=== PATIENT | male | born 1980 | race Caucasian/White ===

== ENCOUNTER → 2023-05-28 | Outpatient (CLI) | payer BC, SELFPAY ==
[2023-05-28 18:14] LABS: Absolute Lymphocyte Count 2.11 X10^3/uL (0.83-4.51); Absolute Neutrophil Count 3.6 X10^3/uL (2.0-7.7); Basophil# 0.05 X10^3/uL; Basophil% 0.8 % (0-1); Eosinophil# 0.15 X10^3/uL; Eosinophils% 2.3 % (0-5); Hematocrit 47.8 % (40-54); Lymphocyte # 2.11 X10^3/ul (0.83-4.51); Lymphocyte % 32.9 % (19-41); Mean Corp Hgb Conc 33.5 g/dL (32-36); Mean Corpuscular Volume 86.8 fL (80-94); Mean Platelet Vol. 10.7 fl (6.2-12.0); Monocyte# 0.53 X10^3/uL; Monocyte% 8.3 % (0-10); NRBC Flagged by Analyzer 0 % (0-5); Neutrophil # 3.57 X10^3/uL (2.7-7.7); Neutrophil % 55.5 % (47-70); Platelet Count 330 K/mm3 (150-450); RBC Distribution Width CV 11.7 % (11.6-14.6); RBC Distribution Width SD 37.3 fl (35.1-43.9); Red Blood Count 5.51 M/mm3 (4.6-6.2); White Blood Count 6.4 K/mm3 (4.4-11.0)
[2023-05-28 18:35] LABS: Vitamin D,25 Hydroxy 24.4 ng/mL
[2023-05-28 18:41] LABS: ALB/GLOB Ratio 1.1 RATIO (0.9-2.4); AST(SGOT) 35 U/L (15-37); Alanine Aminotransfer ALT/SGPT 38 U/L (16-61); Albumin, Serum 3.9 g/dL (3.2-5.0); Alkaline Phosphatase 65 U/L (45-117); Anion Gap 7 (5-15); BUN 11 mg/dL (7-18); BUN/Creat Ratio 8.9 RATIO (10-20); Calcium,Total 9.1 mg/dL (8.5-10.1); Chloride 106 mmol/L (98-107); Creatinine, Serum 1.23 mg/dL (0.70-1.30); EST Glomerular Filtration Rate 69 mL/min (>60); Est Glom Filt Rate - Afr Amer 83 mL/min (>60); Globulin 3.7 g/dL (2.2-4.2); Glucose 113 mg/dL (74-106); Potassium 3.7 mmol/L (3.5-5.1); Protein, Total 7.6 g/dL (6.4-8.2); Sodium Level 139 mmol/L (136-145); Thyroid Stim Hormone (TSH) 1.02 uIU/mL (0.358-3.74)
[2023-05-28 21:41] LABS: Hemoglobin A1c 5.4 % (3.8-5.6)
--- OUTSIDE RECORDS SUMMARY | 2023-05-29 02:14 | XMS RPT_ITS | CCD ---
Author Name Unknown Address [address] [place] [address] Organization [facility] Care Team Providers Care Mortgage Processing Clerk Name Role Phone Alejandra King MD Primary Care Provider ALEJANDRA KING Primary Care Unavailable BENTON PHILLIPS Attending Unavailable ALEJANDRA KING Referring Unavailable BENTON PHILLIPS Attending Unavailable ALEJANDRA KING Primary Care Unavailable GREGG GREWAL Attending Unavailable ALEJANDRA KING Primary Care Unavailable GREGG GREWAL Attending Unavailable ALEJANDRA KING Primary Care Unavailable GREGG GREWAL Attending Unavailable ALEJANDRA KING Primary Care Unavailable ALEJANDRA KING Primary Care Unavailable JOSE LUIS SALVADOR Attending Unavailable Medications Current Medications Medication Drug Class(es) Dates Sig (Normalized) Sig (Original) azelastine hydrochloride 0.137 mg/actuat metered dose nasal spray (5 sources) Histamine-1 Receptor Antagonist Start: 04-26-2022 End: 04-26-2023 take 2 spray(s) nasal route twice daily azelastine (Astelin) 0.1 % nasal spray Administer 2 sprays into each nostril 2 times daily. Use in each nostril as directed 30 mL 11 04/26/2022 04/26/2023 Active ipratropium bromide 0.042 mg/actuat metered dose nasal spray (5 sources) Anticholinergic Start: 06-11-2022 End: 07-02-2022 take 2 spray(s) nasal route three times daily ipratropium (Atrovent) 0.06 % nasal spray Administer 2 sprays into each nostril 3 times daily for 21 days. 15 mL 0 06/11/2022 Active magnesium oxide 400 mg oral capsule (3 sources) take 1 capsule by mouth once daily magnesium oxide 400 MG capsule Take 400 mg by mouth daily. 0 Active meloxicam 5 mg oral capsule (5 sources) Nonsteroidal Anti-inflammatory Drug take 1 capsule by mouth in the morning Meloxicam 5 MG capsule Take 5 mg by mouth in the morning. 0 Active Completed/Discontinued Medications Medication Drug Class(es) Dates Sig (Normalized) Sig (Original) methylPREDNISolone 4 mg oral tablet (1 source) Corticosteroid Start: 3 End: 3 methylPREDNISolone (Medrol Dospak) 4 MG tablets Indications: Chronic migraine without aura with status migrainosus, not intractable Take as directed 1 each 0 08/27/2022 11/27/2022 Discontinued (Med list cleanup) nortriptyline 10 mg oral capsule (3 sources) Tricyclic Antidepressant Start: 3 End: 3 take 2 capsules by mouth once daily nortriptyline (Pamelor) 10 MG capsule Indications: Chronic migraine without aura with status migrainosus, not intractable Take 2 capsules (20 mg) by mouth Nightly. 60 capsule 2 11/27/2022 02/26/2023 Discontinued (Side effects) riboflavin 100 mg oral tablet (1 source) End: 3 Riboflavin 100 MG capsule Take by mouth. 0 11/27/2022 Discontinued (Therapy completed) rizatriptan 5 mg disintegrating oral tablet (2 sources) Serotonin-1b and Serotonin-1d Receptor Agonist Start: 3 End: 3 rizatriptan STRATEGY INTERN (Maxalt-STRATEGY INTERN) 5 MG disintegrating tablet Take 1 tablet (5 mg) by mouth Once as needed for migraine. May repeat in 2 hours if unresolved. Do not exceed 30 mg in 24 hours. 9 tablet 0 06/22/2022 11/27/2022 Discontinued (Ineffective) SUMAtriptan 100 mg oral tablet (3 sources) Serotonin-1b and Serotonin-1d Receptor Agonist Start: 3 End: 3 take 1 tablet by mouth every two hours, then take 2 tablets by mouth every twenty-four hours SUMAtriptan (Imitrex) 100 MG tablet Indications: Chronic migraine without aura with status migrainosus, not intractable Take one tablet by ORAL route at onset of headache. If headache continues may repeat dose 2 hours later with max dose of 2 tablets in 24 hours. 9 tablet 2 11/27/2022 02/26/2023 Discontinued (Ineffective) Problems Active Problems Problem Classification Problem Date Documented Da te Episodic/Chronic Headache; including migraine (13 sources) Refractory migraine with aura; Translations: [Persistent migraine aura without cerebral infarction, intractable, without status migrainosus] Onset: 06-11-2022 Chronic Headache; including migraine (2 sources) Headache; including migraine; Translations: [Headache, unspecified] Onset: 04-26-2022 Other upper respiratory disease (1 source) Nasal obstruction; Translations: [Other specified disorders of nose and nasal sinuses] Episodic Other upper respiratory infections (2 sources) Other chronic sinusitis; Translations: [Other chronic sinusitis] Onset: 04-26-2022 Chronic Past or Other Problems Problem Classification Problem Date Documented Da te Episodic/Chronic Other upper respiratory disease (2 sources) Deviated nasal septum; Translations: [Deviated nasal septum] Onset: 06-11-2022 Episodic Other upper respiratory disease (2 sources) Other specified disorders of nose and nasal sinuses; Translations: [Other specified disorders of nose and nasal sinuses] Onset: 06-11-2022 Episodic Other upper respiratory disease (1 source) Deviated nasal septum; Translations: [Deviated nasal septum] Onset: 06-11-2022 Episodic Results Test Name Value Interpretation Reference Range Facil ity Vital Signs Date Time Vital Sign Value Performing Clinician Faci [facility] 02-26-2023 08:54-0500 Body height 182.9 cm Gregg Xuzhou [employer] Work Phone: [facility] 02-26-2023 08:54-0500 Body mass index (BMI) [Ratio] 28.89 kg/m2 Gregg Xuzhou [employer] Work Phone: [facility] 02-26-2023 08:54-0500 Body weight 96.62 kg Gregg Xuzhou [employer] Work Phone: [facility] 02-26-2023 08:54-0500 Diastolic blood pressure 78 mm[Hg] Gregg Grewal [employer] Work Phone: [facility] 02-26-2023 08:54-0500 Heart rate 78 /min Gregg [employer] Work Phone: [facility] 02-26-2023 08:54-0500 Systolic blood pressure 129 mm[Hg] Gregg Gayer PA-C Work Phone: [facility] 11-27-2022 08:51-0400 Body height 182.9 cm Gregg Gayer PA-C Work Phone: [facility] 11-27-2022 08:51-0400 Body mass index (BMI) [Ratio] 27.8 kg/m2 Gregg Gayer PA-C Work Phone: [facility] 11-27-2022 08:51-0400 Body weight 92.99 kg Gregg Gayer PA-C Work Phone: [facility] 11-27-2022 08:51-0400 Diastolic blood pressure 81 mm[Hg] Gregg Gayer PA-C Work Phone: [facility] 11-27-2022 08:51-0400 Heart rate 78 /min Gregg Gayer PA-C Work Phone: [facility] 11-27-2022 08:51-0400 Systolic blood pressure 144 mm[Hg] Gregg Gayer PA-C Work Phone: [facility] 06-22-2022 08:27-0400 Body height 182.9 cm Jose Luis Salvador MD Work Phone: [facility] 06-22-2022 08:27-0400 Body mass index (BMI) [Ratio] 27.12 kg/m2 Jose Luis Salvador MD Work Phone: [facility] 06-22-2022 08:27-0400 Body temperature 97.59 [degF] Jose Luis Salvador MD Work Phone: [facility] 06-22-2022 08:27-0400 Body weight 90.72 kg Jose Luis Salvador MD Work Phone: [facility] 06-22-2022 08:27-0400 Diastolic blood pressure 78 mm[Hg] Jose Luis Salvador MD Work Phone: [facility] Encounters Encounter Date Encounter Type Care Provider Facility Start: 02-26-2023 End: 02-26-2023 ambulatory GREGG GREWAL [facility] Start: 02-26-2023 End: 02-26-2023 Office outpatient visit 15 minutes Gregg Grewal PA-C Work Phone: [facility] Plan of Treatment Date Care Activity Detail Author Start: 2041 RSV Immunization age d 60 or older (1 - 1-dose 60+ series) RSV Immunization aged 60 or older (1 - 1-dose 60+ series) [facility] Start: 12-29-2031 Zoster Vaccines (1 of 2) Zoster Vacc libby (1 of 2) [facility] Start: 03-18-2030 DTaP/Tdap/Td Vaccine s (2 - Td or Tdap) DTaP/Tdap/Td Vaccines (2 - Td or Tdap) [facility] Start: 03-28-2027 DTaP/Tdap/Td Vaccine s (1 - Tdap) DTaP/Tdap/Td Vaccines (1 - Tdap) [facility] Immunizations Immunization Date Immunization Notes Care Provider Fa cility 11-16-2020 influenza virus vacc ine, unspecified formulation Gregg Grewal PA-C Work Phone: [facility] Payers Date Payer Category Payer Unknown GUJNAN [employer] [id number] 2022-Present [address] [place] [address] Commercial [id number] 2022 Unknown [id number] Social History Date Type Detail Facility Start: 01-25-2022 Tobacco smoking stat us [facility] Never smoked tobacco [facility] Start: 06-11-2022 End: 02-26-2023 Alcohol intake Current drinker of alcohol (finding) [facility] Start: 01-25-2022 Alcohol Comment occasionally [facility] Start: 1980 Sex Assigned At Not on file [facility] Start: 06-12-2022 End: 11-27-2022 Exposure to SARS-CoV-2 (event) Not sure [facility] Start: 08-27-2022 End: 11-27-2022 History of Social function [facility] Start: 08-27-2022 End: 11-27-2022 Tobacco use panel [facility] Clinical Notes 04-26-2022 to 02-26-2023 Assessment & Plan Note - ZOILA Gomez 02/26/2023 9:07 AM ESTAssessment & Plan Note - Gregg Grewal PA-C - 02/26/2023 9:07 AM ESTCasefaustina Grewal PA-C - 02/26/2023 9:00 AM EST Note Date & Type Note Facility 02-26-2023 Evaluation + Plan note Associated Problem(s): Chronic migraine without aura with status migrainosus, not intractable Patient continues with daily headaches. He did not have any improvement with the Pamelor/nortriptyline and had severe dry mouth with the medication. Patient reports that the Imitrex/sumatriptan provided no relief of headache. At this time patient will continue with the Magnesium oxide 400 mg nightly for headache prevention. Patient will continue with the Riboflavin/vitamin B2 400 mg daily with food for headache prevention. Patient can continue to use Excedrin for the most severe headaches, recommend to use it no more than 10 times per month. Discussed with patient that would could consider Botox to treat the chronic daily headaches. Discussed with patient that we can consider 3 day headache infusion to try to break the cycle of headaches. Patient reports fatigue with poor focus. He has mild sleep apnea, but states that he does not qualify for treatment because it isn't severe enough . Discussed with patient to speak with PCP or sleep specialist to let them know that he has intractable headaches, excessive daytime drowsiness, poor brain focus/brain fog and with these symptoms they may be able to start treating the sleep apnea, even though it is mild. Continue with daily exercise. Avoid sleeping on your back. No driving when drowsy. Continue with good sleep hygiene and 8 hours sleep per night. Continue to stay well hydrated with at least 64 ounces water daily. I will provide samples of Nurtec ODT 75 mg. One tablet at onset of headache. Max dose of 1 in 24 hours. Ubrelvy 100 mg one at onset of headache. If headache continues may repeat dose 2 hours later with max dose of 2 tablets in 24 hours. DO NOT USE THE NURTEC AND UBRELVY WITHIN THE SAME 24 HOURS. [facility] 02-26-2023 Miscellaneous Notes Associated Problem(s): Chronic migraine without aura with status migrainosus, not intractable Patient continues with daily headaches. He did not have any improvement with the Pamelor/nortriptyline and had severe dry mouth with the medication. Patient reports that the Imitrex/sumatriptan provided no relief of headache. At this time patient will continue with the Magnesium oxide 400 mg nightly for headache prevention. Patient will continue with the Riboflavin/vitamin B2 400 mg daily with food for headache prevention. Patient can continue to use Excedrin for the most severe headaches, recommend to use it no more than 10 times per month. Discussed with patient that would could consider Botox to treat the chronic daily headaches. Discussed with patient that we can consider 3 day headache infusion to try to break the cycle of headaches. Patient reports fatigue with poor focus. He has mild sleep apnea, but states that he does not qualify for treatment because it isn't severe enough . Discussed with patient to speak with PCP or sleep specialist to let them know that he has intractable headaches, excessive daytime drowsiness, poor brain focus/brain fog and with these symptoms they may be able to start treating the sleep apnea, even though it is mild. Continue with daily exercise. Avoid sleeping on your back. No driving when drowsy. Continue with good sleep hygiene and 8 hours sleep per night. Continue to stay well hydrated with at least 64 ounces water daily. I will provide samples of Nurtec ODT 75 mg. One tablet at onset of headache. Max dose of 1 in 24 hours. Ubrelvy 100 mg one at onset of headache. If headache continues may repeat dose 2 hours later with max dose of 2 tablets in 24 hours. DO NOT USE THE NURTEC AND UBRELVY WITHIN THE SAME 24 HOURS. documented in this encounter [facility] 02-26-2023 History of Presen t illness Narrative Images from the original note were not included. [facility] [address] [place] [id number] Dept: [phone] Dept Loc: [phone] Visit type: Established Reason for Visit: Follow-up (Follow up for chronic migraine. Patient has had a constant migraine on a daily basis. He feels nauseated a few times a week. He has had no relief from medications.) Assessment and Plan 1. Chronic migraine without aura with status migrainosus, not intractable Assessment & Plan: Patient continues with daily headaches. He did not have any improvement with the Pamelor/nortriptyline and had severe dry mouth with the medication. Patient reports that the Imitrex/sumatriptan provided no relief of headache. At this time patient will continue with the Magnesium oxide 400 mg nightly for headache prevention. Patient will continue with the Riboflavin/vitamin B2 400 mg daily with food for headache prevention. Patient can continue to use Excedrin for the most severe headaches, recommend to use it no more than 10 times per month. Discussed with patient that would could consider Botox to treat the chronic daily headaches. Discussed with patient that we can consider 3 day headache infusion to try to break the cycle of headaches. Patient reports fatigue with poor focus. He has mild sleep apnea, but states that he does not qualify for treatment because it isn't severe enough . Discussed with patient to speak with PCP or sleep specialist to let them know that he has intractable headaches, excessive daytime drowsiness, poor brain focus/brain fog and with these symptoms they may be able to start treating the sleep apnea, even though it is mild. Continue with daily exercise. Avoid sleeping on your back. No driving when drowsy. Continue with good sleep hygiene and 8 hours sleep per night. Continue to stay well hydrated with at least 64 ounces water daily. I will provide samples of Nurtec ODT 75 mg. One tablet at onset of headache. Max dose of 1 in 24 hours. Ubrelvy 100 mg one at onset of headache. If headache continues may repeat dose 2 hours later with max dose of 2 tablets in 24 hours. DO NOT USE THE NURTEC AND UBRELVY WITHIN THE SAME 24 HOURS. Follow up in about 4 months (around 06/28/2023) for with Gregg CARDONA Patient is a return visit to the neurology clinic. Patient was last seen 11/27/2022 by myself. He has been followed for chronic daily headaches with migraine features. He was started on Pamelor for headache prevention and due to lack of benefit with Maxalt we switched to Imitrex as needed for onset of headache. He was to also continue with magnesium oxide and riboflavin. Patient had asked [facility]'s [facility]. 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 Can be associate with photophobia, phonophobia, nausea and vomiting with the most severe. He has chronic sinus congestion. Denies any neck pain or dizziness. He occasionally has developed yellow stars or sparkles in his vision. Frequency/duration: Patient has daily headaches which she states fluctuates between 3 and 9 out of 10 in severity, and lasting all day long. Triggers: Weather changes, lack of sleep Relievers: Rest and relaxation Tried abortive medication: Tylenol, unable to use NSAIDs due to stem cell injection in the, rizatriptan (no benefit), Medrol Dosepak (no benefit), Imitrex (no benefit) Tried prevention medication: Magnesium, riboflavin, Pamelor (no benefit, sedation, dry mouth) Current Treatment with medication: Magnesium 400 mg daily, riboflavin 400 mg daily, Imitrex 100 mg as needed for onset Sleep: Patient admits to mild sleep apnea. He has been tested numerous times. He is using an oral device nightly. He states he was not severe enough for a Pap device. Missed time from family function/work: Patient has missed 1 day of work since last visit due to headaches. ER visits since last OV: None due to headache Workup: Neuroimaging: CT head with contrast 03/13/2022: No acute intercranial exam. Clear sinuses. CT maxillofacial without 11/13/2021: A mucous retention cyst medially in the left maxillary sinus measuring 8 mm. Mild septal deviation to the right. Patient is being seen independently today. Patient reports that he did not tolerate the Pamelor due to side effects and had to stop the medication. The Imitrex did not provide any relief with the headaches. He states that he is getting through daily with the headaches, unless they are severe enough to cause nausea. That is when he has a debilitating time with the headaches. Patient reports that he received the [facility] and [facility] the [facility] attached to his file. Patient today I complaining of difficulties with fatigue, concentration and brain fog. Patient reports that he has been tested for sleep apnea in the past and has been found to have mild sleep apnea . Patient states that he has not been treated with PAP devices because the sleep apnea is not severe enough . Discussed with patient to speak with PCP or [facility] about the other symptoms that he has developed which could be related to the untreated sleep apnea. Today patient is rating his pain 4/10 in severity. The most severe is 9/10. The headaches are lasting 1-24 hours in duration. Today we discussed continuing with only the vitamin supplements at this time. We discussed consideration for Botox and 3 day headache infusion to see if it will help his headaches. REVIEW OF SYSTEMS: Review of Systems Patient denies vision changes, tinnitus, and dizziness. No difficulties with chewing, swallowing or speech. No shortness of breath, dyspnea on exertion, chest pain, or heart palpitations. No nausea, vomiting, diarrhea or constipation. No focal areas of weakness. No paresthesia. No gait instability. Ambulatory with no assisted devices. Denies any depression or anxiety. No memory impairments but admits to brain fog. Other ROS as per HPI. No Known Allergies Outpatient Medications Prior to Visit Medication Sig Dispense Refill azelastine (Astelin) 0.1 % nasal spray Administer 2 sprays into each nostril 2 times daily. Use in each nostril as directed 30 mL 11 magnesium oxide 400 MG capsule Take 400 mg by mouth daily. Meloxicam 5 MG capsule Take 5 mg by mouth in the morning. ipratropium (Atrovent) 0.06 % nasal spray Administer 2 sprays into each nostril 3 times daily for 21 days. 15 mL 0 nortriptyline (Pamelor) 10 MG capsule Take 2 capsules (20 mg) by mouth Nightly. 60 capsule 2 SUMAtriptan (Imitrex) 100 MG tablet Take one tablet by ORAL route at onset of headache. If headache continues may repeat dose 2 hours later with max dose of 2 tablets in 24 hours. 9 tablet 2 No facility-administered medications prior to visit. Past Medical History: Diagnosis Date Chronic rhinitis Decreased range of motion (ROM) of knee Decreased range of motion of right ankle Head injury Headache Migraine Osteoarthritis Tinnitus Social History Tobacco Use Smoking status: Never Smokeless tobacco: Not on file Substance Use Topics Alcohol use: Yes Comment: occasionally Past Surgical History: Procedure Laterality Date EYE SURGERY KNEE SURGERY NASAL SEPTUM SURGERY SINUS SURGERY TONSILLECTOMY Family History Problem Relation Name Age of Onset No Known Problems Mother Emphysema Paternal Grandmother Tobacco hx Pneumonia Paternal Grandmother Objective Vitals: BP 129/78 (BP Location: Right arm, Patient Position: Sitting) Pulse 78 Ht 6' (1.829 m) Wt 213 lb (96.6 kg) BMI 28.89 kg/m General: The patient was well developed, in no acute distress. Flat affect. HEENT: Normocephalic, atraumatic. Conjunctiva, lids, pupils, and irises clear. Oral mucosa is moist. Neck: Supple. No carotid bruits. Full range of motion. No nuchal rigidity or neck tenderness to palpation. Cardiovascular: Regular rate and rhythm. No murmurs. Arms and legs are warm and well-perfused. No clubbing, cyanosis or edema. Lungs: Clear to auscultation. Abdomen: Soft, non-tender, non-distended. Positive bowel sounds. Skin (Restricted to face and distal upper and lower extremities): No bruising noted, no lacerations noted. Musculoskeletal: No tenderness observed. Neurological Examination: Mental Status: Patient is currently awake, alert, and oriented to person, place, and time. Able to state the reason for today's visit and can recall events leading up to this visit. Speech is fluent without any evidence of dysphasia. Cranial Nerves: II Optic: Pupils equal and reactive. Visual meredith full. III Oculomotor, IV Trochlear, Abducens: Extraocular movements intact. No nystagmus. No gaze palsy or paresis. No ptosis. V Trigeminal: Facial sensation normal and symmetric in V1-V3 distribution. VII Facial: Facial strength normal and symmetric. VIII Vestibulocochlear: Hearing intact bilaterally. IX Glossopharyngeal / X Vagus: Palate elevates symmetrically and uvula midline. XI Accessory: Shoulder shrug symmetric. XII Hypoglossal: Tongue midline with normal bilateral strength. Motor Examination: Full 5/5 strength in bilateral upper and lower extremities to confrontation. Normal muscle bulk. No obvious atrophy or fasciculations seen. No pronator drift. Normal tone. No rigidity. No tremor. Sensory Examination: Sensation intact to light touch. Gait Examination: No difficulty standing from sitting position. Steady and symmetrical gait with normal stride length, arm swing, and turning without instability. I spent 20 minutes caring for this patient today, reviewing labs, records from another facility, seeing the patient, documenting in the record and arranging for studies. documented in this encounter [facility] 02-26-2023 Instructions Gregg Grewal PA-C - 02/26/2023 9:00 AM EST Patient continues with daily headaches. He did not have any improvement with the Pamelor/nortriptyline and had severe dry mouth with the medication. Patient reports that the Imitrex/sumatriptan provided no relief of headache. At this time patient will continue with the Magnesium oxide 400 mg nightly for headache prevention. Patient will continue with the Riboflavin/vitamin B2 400 mg daily with food for headache prevention. Patient can continue to use Excedrin for the most severe headaches, recommend to use it no more than 10 times per month. Discussed with patient that would could consider Botox to treat the chronic daily headaches. Discussed with patient that we can consider 3 day headache infusion to try to break the cycle of headaches. Patient reports fatigue with poor focus. He has mild sleep apnea, but states that he does not qualify for treatment because it isn't severe enough . Discussed with patient to speak with PCP or sleep specialist to let them know that he has intractable headaches, excessive daytime drowsiness, poor brain focus/brain fog and with these symptoms they may be able to start treating the sleep apnea, even though it is mild. Continue with daily exercise. Avoid sleeping on your back. No driving when drowsy. Continue with good sleep hygiene and 8 hours sleep per night. Continue to stay well hydrated with at least 64 ounces water daily. I will provide samples of Nurtec ODT 75 mg. One tablet at onset of headache. Max dose of 1 in 24 hours. Ubrelvy 100 mg one at onset of headache. If headache continues may repeat dose 2 hours later with max dose of 2 tablets in 24 hours. DO NOT USE THE NURTEC AND UBRELVY WITHIN THE SAME 24 HOURS. documented in this encounter [facility] 01-01-2023 Telephone encounter Note MY CHART MESSAGE SENT TO PATIENT> [facility] 01-01-2023 Miscellaneous Notes MY CHART MESSAGE SENT TO PATIENT> documented in this encounter [facility] 11-27-2022 Evaluation + Plan note Associated Problem(s): Chronic migraine without aura with status migrainosus, not intractable Patient continues with daily headaches. We are going to try patient on nortriptyline 10 mg one at bedtime. Do this for 1 - 2 weeks And if no change or side effects then increase to two pills at bedtime. Lack of benefit with the rizatriptan we will try the Sumatriptan 100 mg as needed for onset of headache. If headache continues may repeat dose 2 hours later with max dose of 2 tablets in 24 hours. Continue to stay well hydrated with at least 64 ounces water daily. Daily exercise 8 hours sleep per night. Patient had questions about a [employer] letter being written. We will look into this. [facility] 11-27-2022 Miscellaneous Notes Associated Problem(s): Chronic migraine without aura with status migrainosus, not intractable Patient continues with daily headaches. We are going to try patient on nortriptyline 10 mg one at bedtime. Do this for 1 - 2 weeks And if no change or side effects then increase to two pills at bedtime. Lack of benefit with the rizatriptan we will try the Sumatriptan 100 mg as needed for onset of headache. If headache continues may repeat dose 2 hours later with max dose of 2 tablets in 24 hours. Continue to stay well hydrated with at least 64 ounces water daily. Daily exercise 8 hours sleep per night. Patient had questions about a Nexus letter being written. We will look into this. documented in this encounter [facility] 11-27-2022 History of Presen t illness Narrative Images from the original note were not included. [facility] [address] [place] [id number] Dept: [phone] Dept Loc: [phone] Visit type: Established Reason for Visit: Follow-up and Migraine (The patient has not seen any improvement. He states that he has constant sinus pressure, drainage and migraines. He has increased the vitamins and tried the Ubrelvy and this did not help him.) Assessment and Plan 1. Chronic migraine without aura with status migrainosus, not intractable Assessment & Plan: Patient continues with daily headaches. We are going to try patient on nortriptyline 10 mg one at bedtime. Do this for 1 - 2 weeks And if no change or side effects then increase to two pills at bedtime. Lack of benefit with the rizatriptan we will try the Sumatriptan 100 mg as needed for onset of headache. If headache continues may repeat dose 2 hours later with max dose of 2 tablets in 24 hours. Continue to stay well hydrated with at least 64 ounces water daily. Daily exercise 8 hours sleep per night. Patient had questions about a [employer] letter being written. We will look into this. Orders: - nortriptyline (Pamelor) 10 MG capsule; Take 2 capsules (20 mg) by mouth Nightly., Starting Sat11/27/2022, Normal - SUMAtriptan (Imitrex) 100 MG tablet; Take one tablet by ORAL route at onset of headache. If headache continues may repeat dose 2 hours later with max dose of 2 tablets in 24 hours., Normal Follow up in about 3 months (around 02/26/2023) for with Gregg Coats HPI Patient is a return visit to the neurology clinic. Patient was last seen on 08/27/2022 by myself. He has been followed for chronic migraines without aura. On his last visit we tried him on a Medrol Dosepak to try to break the cycle of his headaches. He was to continue with supplementation including magnesium oxide and riboflavin daily. He had Maxalt as needed for onset of headache and samples of Nurtec and Ubrelvy were provided. We discussed consideration for Botox versus other prevention medication due to frequency and severity of his headaches. 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 Can be associate with photophobia, phonophobia, nausea and vomiting with the most severe. He has chronic sinus congestion. Denies any neck pain or dizziness. He occasionally has developed yellow stars or sparkles in his vision. Frequency/duration: Patient has daily headaches which she states fluctuates between 3 and 9 out of 10 in severity, and lasting all day long. Triggers: Weather changes, lack of sleep Relievers: Rest and relaxation Tried abortive medication: Tylenol, unable to use NSAIDs due to stem cell injection in the, rizatriptan (no benefit), Medrol Dosepak (no benefit). Tried prevention medication: Magnesium, riboflavin Current Treatment with medication: Magnesium 400 mg daily, riboflavin 400 mg daily, rizatriptan 5 mg as needed for onset Sleep: Patient admits to mild sleep apnea. He has been tested numerous times. He is using an oral device nightly. He states he was not severe enough for a Pap device. Missed time from family function/work: Patient has missed 1 day of work since last visit due to headaches. ER visits since last OV: None due to headache Workup: Neuroimaging: CT head with contrast 03/13/2022: No acute intercranial exam. Clear sinuses. CT maxillofacial without 11/13/2021: A mucous retention cyst medially in the left maxillary sinus measuring 8 mm. Mild septal deviation to the right. Patient continues with chronic daily headaches. He is currently rating his pain 3/10 in severity which is his baseline. They can increase to a 9/10 in severity. He has missed 1 day of work due to the increasing severity. Patient reports a Medrol Dosepak provided no relief. The rizatriptan is providing no relief. Magnesium and riboflavin has decreased the severity on most days. His headaches continue to last the majority of the day if not all day. At this time we discussed again trying prevention medication and adjusting the rizatriptan due to lack of benefit. Patient is willing to try preventative medication at this time. He is concerned about side effects. 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 We discussed trying nortriptyline to help with quality of sleep and headache control. We discussed transitioning from rizatriptan over to sumatriptan. Patient's headaches all started back in 2003. Risk factors include traumatic head injuries, burning pit exposure while he was in the [employer]. He is [facility] Since last visit patient did undergo lower back surgery. He had an L5-S1 discectomy and currently undergoing weekly physical therapy sessions. His back pain and sciatic pain has resolved with this surgical procedure. REVIEW OF SYSTEMS: Review of Systems Patient denies vision changes, tinnitus, and dizziness. No difficulties with chewing, swallowing or speech. No shortness of breath, dyspnea on exertion, chest pain, or heart palpitations. No nausea, vomiting, diarrhea or constipation. No focal areas of weakness. No paresthesia. No gait instability. Ambulatory with no assisted devices. Denies any depression or anxiety. No memory impairments. Other ROS as per HPI. No Known Allergies Outpatient Medications Prior to Visit Medication Sig Dispense Refill azelastine (Astelin) 0.1 % nasal spray Administer 2 sprays into each nostril 2 times daily. Use in each nostril as directed 30 mL 11 magnesium oxide 400 MG capsule Take 400 mg by mouth daily. Meloxicam 5 MG capsule Take 5 mg by mouth in the morning. Riboflavin 100 MG capsule Take by mouth. ipratropium (Atrovent) 0.06 % nasal spray Administer 2 sprays into each nostril 3 times daily for 21 days. 15 mL 0 methylPREDNISolone (Medrol Dospak) 4 MG tablets Take as directed (Patient not taking: Reported on 11/27/2022) 1 each 0 rizatriptan STRATEGY INTERN (Maxalt-STRATEGY INTERN) 5 MG disintegrating tablet Take 1 tablet (5 mg) by mouth Once as needed for migraine. May repeat in 2 hours if unresolved. Do not exceed 30 mg in 24 hours. 9 tablet 0 No facility-administered medications prior to visit. Past Medical History: Diagnosis Date Chronic rhinitis Decreased range of motion (ROM) of knee Decreased range of motion of right ankle Head injury Headache Migraine Osteoarthritis Tinnitus Social History Tobacco Use Smoking status: Never Smokeless tobacco: Not on file Substance Use Topics Alcohol use: Yes Comment: occasionally Past Surgical History: Procedure Laterality Date EYE SURGERY KNEE SURGERY NASAL SEPTUM SURGERY SINUS SURGERY TONSILLECTOMY Family History Problem Relation Name Age of Onset No Known Problems Mother Emphysema Paternal Grandmother Tobacco hx Pneumonia Paternal Grandmother Objective Vitals: BP (!) 144/81 (BP Location: Right arm, Patient Position: Sitting) Pulse 78 Ht 6' (1.829 m) Wt 205 lb (93 kg) BMI 27.80 kg/m General: The patient was well developed, in no acute distress. HEENT: Normocephalic, atraumatic. Conjunctiva, lids, pupils, and irises clear. Oral mucosa is moist. Neck: Supple. No carotid bruits. Full range of motion. No nuchal rigidity or neck tenderness to palpation. Cardiovascular: Regular rate and rhythm. No murmurs. Arms and legs are warm and well-perfused. No clubbing, cyanosis or edema. Lungs: Clear to auscultation. Abdomen: Soft, non-tender, non-distended. Positive bowel sounds. Skin (Restricted to face and distal upper and lower extremities): No bruising noted, no lacerations noted. Musculoskeletal: No tenderness observed. Neurological Examination: Mental Status: Patient is currently awake, alert, and oriented to person, place, and time. Able to state the reason for today's visit and can recall events leading up to this visit. Speech is fluent without any evidence of dysphasia. Cranial Nerves: II Optic: Pupils equal and reactive. Visual meredith full. III Oculomotor, IV Trochlear, Abducens: Extraocular movements intact. No nystagmus. No gaze palsy or paresis. No ptosis. V Trigeminal: Facial sensation normal and symmetric in V1-V3 distribution. VII Facial: Facial strength normal and symmetric. VIII Vestibulocochlear: Hearing intact bilaterally. IX Glossopharyngeal / X Vagus: Palate elevates symmetrically and uvula midline. XI Accessory: Shoulder shrug symmetric. XII Hypoglossal: Tongue midline with normal bilateral strength. Motor Examination: Full 5/5 strength in bilateral upper and lower extremities to confrontation. Normal muscle bulk. No obvious atrophy or fasciculations seen. No pronator drift. Normal tone. No rigidity. No tremor. Sensory Examination: Sensation intact to light touch. Gait Examination: No difficulty standing from sitting position. Steady and symmetrical gait with normal stride length, arm swing, and turning without instability. I spent 30 minutes caring for this patient today, reviewing labs, records from another facility, seeing the patient, documenting in the record and arranging for studies. documented in this encounter [facility] 11-27-2022 Instructions Gregg Grewal PA-C - 11/27/2022 9:00 AM EDT Patient continues with daily headaches. We are going to try patient on nortriptyline 10 mg one at bedtime. Do this for 1 - 2 weeks And if no change or side effects then increase to two pills at bedtime. Lack of benefit with the rizatriptan we will try the Sumatriptan 100 mg as needed for onset of headache. If headache continues may repeat dose 2 hours later with max dose of 2 tablets in 24 hours. Continue to stay well hydrated with at least 64 ounces water daily. Daily exercise 8 hours sleep per night. Patient had questions about a Nexus letter being written. We will look into this. documented in this encounter [facility] 06-22-2022 History of Presen t illness Narrative Department of Neurological Sciences Impression: Diagnosis Plan 1. Chronic post-traumatic headache, not intractable Presents with chronic, posttraumatic migraines without aura. Plan: Discussed importance of diet, exercise, sleep. Keep headache diary. Trial of Maxalt as needed. Samples of Nurtec and Ubrelvy provided. We will start magnesium and riboflavin supplementation and consider addition of alternative migraine prophylactic medication if headaches continue to be frequent. CHIEF COMPLAINT: Chief Complaint Patient presents with New Patient Headache Daily headaches and sinus congestion that seem to be associated. Previously seen by multiple ENT, sleep studies/sleep apnea test that gave no explanation. Pt suspects burn pit syndrome and chronic rhinitis. Personal efforts to change diet (removing phosphates and chocolate), changing sleep patterns and sleep environment, meditation for stress relief. Headaches are still constant but pain has dulled do to habituation. HISTORY OF PRESENT ILLNESS: The patient is a 41 y.o. male with a history of osteoarthritis who presents with headaches. He reports that his headaches began in 2003 after traumatic brain injury that he sustained while deployed in [place]. His headaches are bifrontal, throbbing, occurring on majority of the days per month. Most of them are mild but a minority can reach 7 or 8 out of 10 in severity. His headaches typically last most of the day. Accompanied by light sensitivity, noise sensitivity, occasional nausea, sinus congestion. Headaches are worsened by physical activity. Can be triggered by weather changes and lack of sleep. He is not aware of dietary, or triggers. Headaches are typically relieved by rest. They are not preceded by typical visual aura. He affirms hydration, exercise, sleep. [facility] told that images were normal (report not available), CT imaging. He is not using Tylenol with 25% improvement of headache severity. He is unable to use NSAIDs due to history of stem cell injection in the knee. He was given a prescription for sumatriptan but did not fill it due to the possibility of side effects. He denies jaw claudication, transient visual obscurations, pulsatile tinnitus, pain with Valsalva or straining, frequent nocturnal awakenings, focal neurological symptoms. FH + Mother with migraines Past Medical History: Past Medical History: Diagnosis Date Decreased range of motion (ROM) of knee Decreased range of motion of right ankle Osteoarthritis Tinnitus Past Surgical History: Past Surgical History: Procedure Laterality Date EYE SURGERY KNEE SURGERY NASAL SEPTUM SURGERY SINUS SURGERY TONSILLECTOMY Medications: Current Outpatient Medications Medication Sig Dispense Refill azelastine (Astelin) 0.1 % nasal spray Administer 2 sprays into each nostril 2 times daily. Use in each nostril as directed 30 mL 11 ipratropium (Atrovent) 0.06 % nasal spray Administer 2 sprays into each nostril 3 times daily for 21 days. 15 mL 0 Meloxicam 5 MG capsule Take 5 mg by mouth in the morning. rizatriptan STRATEGY INTERN (Maxalt-STRATEGY INTERN) 5 MG disintegrating tablet Take 1 tablet (5 mg) by mouth Once as needed for migraine. May repeat in 2 hours if unresolved. Do not exceed 30 mg in 24 hours. 9 tablet 0 No current facility-administered medications for this visit. Allergies: Patient has no known allergies. Social History: Social History Socioeconomic History Marital status: Spouse name: Not on file Number of children: Not on file Years of education: Not on file Highest education level: Not on file Occupational History Not on file Tobacco Use Smoking status: Never Smokeless tobacco: Not on file Vaping Use Vaping Use: Never used Substance and Sexual Activity Alcohol use: Yes Comment: occasionally Drug use: Never Sexual activity: Yes Partners: Female Other Topics Concern Not on file Social History Narrative Not on file Social Determinants of Health Financial Resource Strain: Not on file Food Insecurity: Not on file Transportation Needs: Not on file Physical Activity: Not on file Stress: Not on file Social Connections: Not on file Intimate Partner Violence: Not on file Housing Stability: Not on file Family History: Family History Problem Relation Name Age of Onset No Known Problems Mother Emphysema Paternal Grandmother Tobacco hx Pneumonia Paternal Grandmother REVIEW OF SYSTEMS: Tinnitus, dysphagia, light sensitivity, abdominal pain, nausea, joint pain, muscle pain, headache No fevers, significant weight loss, hearing loss,,,, visual disturbances, chest tightness, chest pain, shortness of breath, palpitations, heat intolerance, dysuria, joint pain, muscle pain, imbalance, dizziness,, seizures, confusion, anxiety, depression. PHYSICAL EXAM: Vitals: BP (!) 141/78 (BP Location: Right arm, Patient Position: Sitting) Comment: Recently drang energy drink Pulse 72 Temp 36.4 C (97.6 F) Ht 6' (1.829 m) Wt 200 lb (90.7 kg) BMI 27.12 kg/m General: The patient was well developed, in no acute distress. HEENT: Normocephalic, atraumatic. Conjunctiva, lids, pupils, and irises clear. Oral mucosa is moist. Neck: Supple. No carotid bruits. Full range of motion. No nuchal rigidity or neck tenderness to palpation. Cardiovascular: Regular rate and rhythm. No murmurs. Arms and legs are warm and well-perfused. No clubbing, cyanosis or edema. Lungs: Clear to auscultation. Abdomen: Soft, non-tender, non-distended. Positive bowel sounds. Skin (Restricted to face and distal upper and lower extremities): Unremarkable. Musculoskeletal: No tenderness observed. Neurological Examination: Mental Status: Patient is currently awake, alert, and oriented to person, place, and time. Able to state the reason for today's visit and can recall events leading up to this visit. Speech is fluent without any evidence of dysphasia. Cranial Nerves: II Optic: Pupils equal and reactive. Visual meredith full. No papilledema appreciated on fundoscopic exam. III Oculomotor, IV Trochlear, Abducens: Extraocular movements intact. No nystagmus. No gaze palsy or paresis. No ptosis. V Trigeminal: Facial sensation normal and symmetric in V1-V3 distribution. VII Facial: Facial strength normal and symmetric. VIII Vestibulocochlear: Hearing intact bilaterally. IX Glossopharyngeal / X Vagus: Palate elevates symmetrically and uvula midline. XI Accessory: Shoulder shrug symmetric. XII Hypoglossal: Tongue midline with normal bilateral strength. Motor Examination: Full 5/5 strength in bilateral upper and lower extremities to confrontation. Normal muscle bulk. No obvious atrophy or fasciculations seen. No pronator drift. Normal tone. No rigidity. No tremor. Sensory Examination: Sensation intact to light touch, pinprick, temperature, and vibration bilaterally throughout. No extinction to double simultaneous stimulation. Reflexes: 2+ symmetric reflexes in biceps, triceps, brachioradialis, patella, and Achilles bilaterally. No clonus. Cerebellar Examination: There is no overt dysmetria nor dysdiadochokinesia with [id number] or rapid alternating movements. Gait Examination: No difficulty standing from sitting position. Steady and symmetrical gait with normal stride length, arm swing, and turning without instability. Electronically signed by Jose Luis Salvador MD documented in this encounter [facility] 06-22-2022 Instructions Jose Luis Salvador MD - 06/22/2022 9:00 AM EDT General Headache Instructions: 1) Maintain a headache diary, identify dietary/olfactory or hormonal triggers 2) Limit use of acute treatments ([id number] medications, triptans, etc.) to no more than 2 days per week or 10 days per month to prevent analgesic overuse headache (rebound headache). 3) Follow a regular schedule A) Don't skip meals. B) 8 hours of sleep nightly. C) Consider eliminating -caffeine containing drinks (keep caffeine intake regular, avoid excess) -Foods containing nitrates (preserved meats) -Tyramine (aged cheese including most pizzas) -MSG (Cuban/ foods, flavored chips and Ramen noodles) -artificial sweeteners, expecially those found found in soft drinks D) Exercise 30 minutes per day, 5 days per week E) drink 60 oz of noncaffeinated fluids per day 4) Initiate non-pharmacologic measures at the earliest onset of your headache. A) Rest and quiet in a cool, dark environment. B) Relax and reduce stress. C) Cold compress to head 5) Take the maximum allowable dosage of as needed prescribed and/or over the counter medication at the very earliest sign of headache and repeat if needed during the same day Avoiding Medication Overuse Headache (Rebound Headache): Based on current research, the types of medications and their frequency of use which converts a previously episodic headache (particularly migraine) into a chronic daily headache (any headache occurring 15 or more days per month for at least 4 hours per day) are as follows: --- Over the counter medications, NSAIDS and combination analgesics: -More than 2 days per week, or more than 10 days per month. -These include medications such as Acetaminophen (Tylenol), Naproxen (Aleve), Ibuprofen (Advil, Motrin), Acetaminophen/Caffeine (Excedrin), Acetaminophen/Dichloralphenazone/ Isometheptene (Midrin), Aspirin (ok to continue if taking for medical reasons), cold remedies and sleep-promoting agents, among others. --- Triptans: -More than 2 days per week, or more than 10 days per month. -These include Sumatriptan (Imitrex), Sumatriptan/Naproxen (Treximet), Rizatriptan (Maxalt), Almotriptan (Axert), Zolmitriptan (Zomig), Eletriptan (Relpax), Naratriptan (Amerge), Frovatriptan (Frova). ---> Opiates/Opioids (Narcotics): -8 days or more per month. Some research suggests that even infrequent use of these medications makes migraine specific medications such as triptans and NSAIDs less effective. -These include any narcotics such as Acetaminophen/Hydrocodone (Vicodin), Acetaminophen/Oxycodone (Percocet), Acetaminophen/Propoxyhene (Darvocet), Acetaminophen/Codeine (Tylenol #3, #4), Tramadol (Ultram), Acetaminophen/Tramadol (Ultracet), Oxycodone (OxyContin), Hydromorphone (Dilaudid), Fentanyl, Butorphanol (Stadol), Morphine or any form of a Morphine derivative. ---> Butalbital containing medications: -5 or more days per month. As you can see, these are the worst offenders. -These include Acetaminophen/Butalbital/Caffeine (Fioricet, Esgic) Acetaminophen/Butalbital/Caffeine /Codeine (Fioricet with Codeine), Aspirin/Butalbital/Caffeine (Fiorinal), Aspirin/Butalbital/Caffeine/Codei ne (Fiorinal with Codeine). -Note that some newer medications including gepants (Ubrelvy/Nurtec) do not contribute to analgesic overuse headache Vitamins and herbs that show potential for migraine prevention: Magnesium: Magnesium 200-400mg daily can help prevent headaches. It can be helpful for constipation. Riboflavin (Vitamin B2): 200 mg twice a day or 400 mg daily. Also consider trying: Coenzyme Q10 300mg daily Feverfew 50-300mg daily (do not use during ) documented in this encounter [facility] 06-11-2022 Note Assessment and Recom mendations: Dariel Yun is a 41 y.o. male here for evaluation of sinonasal issues. -Given that patient's main complaints are headaches I am referring him to neurology for further evaluation given his prior work-up and negative CT sinus. No obvious triggers on migraine handout -Nasal congestion: Continue Astelin and saline rinses patient does have rightward septal deviation though mild as well as some mild nasal valve collapse and turbinate hypertrophy. Can consider radiofrequency ablation versus revision septoplasty turbinate reduction lateral nasal implant but given prior failed surgery is unclear if this would be significantly helpful for him patient wants to defer any surgical procedures. 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 male who presents for evaluation of chief complaint of rhinologic/nasal complaints ongoing for many years. Patient states he has had multiple nasal surgeries such as septoplasty, turbinate reduction and has also had sinus surgery. Patient states he wakes up every morning with a headache and the headache last the whole day. It is not debilitating but some days the headache is worse than others. He states that sometimes the headache gets worse with photophobia and phonophobia but these are sinus headaches and not usually migraines. He also wakes up with constant nasal congestion and postnasal drip. He states he has tried every nasal spray that has been prescribed to him such as Flonase, Afrin, saline as well as antihistamine such as Claritin or Zyrtec and nothing has helped. He has also done sleep studies to see if sleep apnea is contributing. He does endorse purulent rhinorrhea, facial pain and pressure. No hyposmia. States that he his most recent CT scan was 03/14/2022 which was clear. No tobacco use. No EtOH. No substance use. Denies any allergic rhinitis symptoms. Interval history 06/11/2022: Patient reports that he has been using the Astelin and saline without significant improvement mild improvement perhaps. Wants to avoid any surgical procedures. Has not seen neurology yet due to switching jobs. Still reports headaches, nasal congestion. PMH: Past Medical History: Diagnosis Date Decreased range of motion (ROM) of knee Decreased range of motion of right ankle Osteoarthritis Tinnitus Allergies: No Known Allergies Physical Exam: Constitutional: General: Patient is not in acute distress. Appearance: Patient is well-developed. Eyes: Conjunctiva/sclera: Conjunctivae normal. Pupils: Pupils are equal, round, and reactive to light. HENT: Jaw: No trismus. Ears: Bilateral external ears normal. Right EAC normal, TM clear. Left EAC normal, TM clear. Nose: No nasal deformity, mucosal edema or rhinorrhea. Anterior rhinoscopy shows mild rightward septal deviation there is mucoid drainage bilaterally turban hypertrophy there is nasal valve collapse that improves mildly with modified Ga Mouth: Mucous membranes are not pale, not dry and not cyanotic. No oral lesions. Pharynx: Uvula midline. No oropharyngeal exudate or uvula swelling. Tonsils: No tonsillar exudate. No abnormal masses or lesions Neck: No lymphadenopathy Thyroid: No significant thyromegaly. Trachea: Trachea and phonation normal. No tracheal deviation. Pulmonary: Effort: Pulmonary effort is normal. No respiratory distress. Breath sounds: No stridor. Musculoskeletal: Head: Normocephalic and atraumatic. Neck: Full passive range of motion without pain, neck supple. Skin: General: Skin is warm and dry. Findings: No erythema or rash. Neurological: Cranial Nerves: No cranial nerve deficit. Sensory: No sensory deficit. Coordination: Coordination normal. Extremities: No significant peripheral edema or varicosities Psychiatric: Mood and Affect: Mood and affect normal. Cognition and Memory: Cognition and memory normal. Prior Nasal Endoscopy -Mild rightward septal deviation and nasal valve collapse bilaterally there is mucoid drainage bilaterally middle meatus is clear nasopharynx is clear [facility] 06-11-2022 History of Presen t illness Narrative Assessment and Recommendations: Dariel Yun is a 41 y.o. male here for evaluation of sinonasal issues. -Given that patient's main complaints are headaches I am referring him to neurology for further evaluation given his prior work-up and negative CT sinus. No obvious triggers on migraine handout -Nasal congestion: Continue Astelin and saline rinses patient does have rightward septal deviation though mild as well as some mild nasal valve collapse and turbinate hypertrophy. Can consider radiofrequency ablation versus revision septoplasty turbinate reduction lateral nasal implant but given prior failed surgery is unclear if this would be significantly helpful for him patient wants to defer any surgical procedures. 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 male who presents for evaluation of chief complaint of rhinologic/nasal complaints ongoing for many years. Patient states he has had multiple nasal surgeries such as septoplasty, turbinate reduction and has also had sinus surgery. Patient states he wakes up every morning with a headache and the headache last the whole day. It is not debilitating but some days the headache is worse than others. He states that sometimes the headache gets worse with photophobia and phonophobia but these are sinus headaches and not usually migraines. He also wakes up with constant nasal congestion and postnasal drip. He states he has tried every nasal spray that has been prescribed to him such as Flonase, Afrin, saline as well as antihistamine such as Claritin or Zyrtec and nothing has helped. He has also done sleep studies to see if sleep apnea is contributing. He does endorse purulent rhinorrhea, facial pain and pressure. No hyposmia. States that he his most recent CT scan was 03/14/2022 which was clear. No tobacco use. No EtOH. No substance use. Denies any allergic rhinitis symptoms. Interval history 06/11/2022: Patient reports that he has been using the Astelin and saline without significant improvement mild improvement perhaps. Wants to avoid any surgical procedures. Has not seen neurology yet due to switching jobs. Still reports headaches, nasal congestion. PMH: Past Medical History: Diagnosis Date Decreased range of motion (ROM) of knee Decreased range of motion of right ankle Osteoarthritis Tinnitus Allergies: No Known Allergies Physical Exam: Constitutional: General: Patient is not in acute distress. Appearance: Patient is well-developed. Eyes: Conjunctiva/sclera: Conjunctivae normal. Pupils: Pupils are equal, round, and reactive to light. HENT: Jaw: No trismus. Ears: Bilateral external ears normal. Right EAC normal, TM clear. Left EAC normal, TM clear. Nose: No nasal deformity, mucosal edema or rhinorrhea. Anterior rhinoscopy shows mild rightward septal deviation there is mucoid drainage bilaterally turban hypertrophy there is nasal valve collapse that improves mildly with modified Ga Mouth: Mucous membranes are not pale, not dry and not cyanotic. No oral lesions. Pharynx: Uvula midline. No oropharyngeal exudate or uvula swelling. Tonsils: No tonsillar exudate. No abnormal masses or lesions Neck: No lymphadenopathy Thyroid: No significant thyromegaly. Trachea: Trachea and phonation normal. No tracheal deviation. Pulmonary: Effort: Pulmonary effort is normal. No respiratory distress. Breath sounds: No stridor. Musculoskeletal: Head: Normocephalic and atraumatic. Neck: Full passive range of motion without pain, neck supple. Skin: General: Skin is warm and dry. Findings: No erythema or rash. Neurological: Cranial Nerves: No cranial nerve deficit. Sensory: No sensory deficit. Coordination: Coordination normal. Extremities: No significant peripheral edema or varicosities Psychiatric: Mood and Affect: Mood and affect normal. Cognition and Memory: Cognition and memory normal. Prior Nasal Endoscopy -Mild rightward septal deviation and nasal valve collapse bilaterally there is mucoid drainage bilaterally middle meatus is clear nasopharynx is clear documented in this encounter [facility] 06-11-2022 Instructions Benton Phillips MD - 06/11/2022 9:15 AM EDT NARES syndrome Migraines See the link below for an overview of migraine. Keep a journal of your symptoms to look for triggers in terms of your sleep, what you've eaten, time of the month, stress levels, and medications. The second link is additional information and a forum for patients with vestibular migraines (migraines that cause dizziness). Please take a look and see if the other patients' experiences are consistent with yours. [email or web address] Food triggers ? Aged or ripened cheeses (examples: Cheddar, Gruy re, Emmenthaler, Stilton, Brie, Gouda, Henderson, Parmesan, feta, carrie, Camembert) ? Foods containing large amounts of monosodium glutamate (MSG). foods often have large amounts of MSG. ? Smoked, cured, or processed meats such as preston, sausage, ham, salami, pepperoni, pickled louise, bologna, chicken livers, and hot dogs ? Food prepared with meat tenderizer, soy sauce, vinegar (except white vinegar), or yeast extract; and food that has been fermented, pickled, or marinated ? Pea pods and pods of broad beans such as nixon and navy beans ? Onions, olives, pickles ? Alcohol (especially red wine, port, nkechi, Scotch, gin, and bourbon) ? Sour cream, yogurt, buttermilk ? Hot fresh bread, raised coffee cake, doughnuts ? Excessive aspartame (artificial sweetener) ? Chocolate, cocoa, carob ? Nuts, peanut butter ? Certain fruits, including figs, avocados, raisins, red plums, passion fruit, papaya, banana, and citrus fruit ? Excessive tea, coffee, cola Other triggers ? Hormonal fluctuations ? Barometric-pressure variations (weather changes) ? Sleep disturbance ? Stress ? Medications ? Eye strain (make sure you have a current prescription) ? Low blood sugar ? Cigarette or other smoke, perfumes Keep track of your day to day exposure to these triggers to look for a pattern of what makes your symptoms worse. documented in this encounter [facility] 04-26-2022 Note Assessment and Recom mendations: Dariel Yun is a 41 y.o. male here for evaluation of sinonasal issues. -Given that patient's main complaints are headaches I am referring him to neurology for further evaluation given his prior work-up and negative CT sinus. I did give him the migraine handout and asked him to start a diary which would be helpful for neurology evaluation -Nasal congestion: Start Astelin and saline rinses patient does have rightward septal deviation though mild as well as some mild nasal valve collapse and turbinate hypertrophy. 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 male who presents for evaluation of chief complaint of rhinologic/nasal complaints ongoing for many years. Patient states he has had multiple nasal surgeries such as septoplasty, turbinate reduction and has also had sinus surgery. Patient states he wakes up every morning with a headache and the headache last the whole day. It is not debilitating but some days the headache is worse than others. He states that sometimes the headache gets worse with photophobia and phonophobia but these are sinus headaches and not usually migraines. He also wakes up with constant nasal congestion and postnasal drip. He states he has tried every nasal spray that has been prescribed to him such as Flonase, Afrin, saline as well as antihistamine such as Claritin or Zyrtec and nothing has helped. He has also done sleep studies to see if sleep apnea is contributing. He does endorse purulent rhinorrhea, facial pain and pressure. No hyposmia. States that he his most recent CT scan was 03/14/2022 which was clear. No tobacco use. No EtOH. No substance use. Denies any allergic rhinitis symptoms. PMH: Past Medical History: Diagnosis Date Decreased range of motion (ROM) of knee Decreased range of motion of right ankle Osteoarthritis Tinnitus Allergies: No Known Allergies Medications: Current Outpatient Medications: Meloxicam 5 MG capsule, Take 5 mg by mouth in the morning., Disp: , Rfl: PSH: Past Surgical History: Procedure Laterality Date EYE SURGERY KNEE SURGERY NASAL SEPTUM SURGERY SINUS SURGERY TONSILLECTOMY FH: Family History Problem Relation Name Age of Onset No Known Problems Mother Emphysema Paternal Grandmother Tobacco hx Pneumonia Paternal Grandmother SH: Social History Socioeconomic History Marital status: Spouse name: Not on file Number of children: Not on file Years of education: Not on file Highest education level: Not on file Occupational History Not on file Tobacco Use Smoking status: Never Smokeless tobacco: Not on file Vaping Use Vaping Use: Never used Substance and Sexual Activity Alcohol use: Yes Comment: occasionally Drug use: Never Sexual activity: Yes Partners: Female Other Topics Concern Not on file Social History Narrative Not on file Social Determinants of Health Financial Resource Strain: Not on file Food Insecurity: Not on file Transportation Needs: Not on file Physical Activity: Not on file Stress: Not on file Social Connections: Not on file Intimate Partner Violence: Not on file Housing Stability: Not on file Vital signs: There were no vitals filed for this visit. Physical Exam: Constitutional: General: Patient is not in acute distress. Appearance: Patient is well-developed. Eyes: Conjunctiva/sclera: Conjunctivae normal. Pupils: Pupils are equal, round, and reactive to light. HENT: Jaw: No trismus. Ears: Bilateral external ears normal. Right EAC normal, TM clear. Left EAC normal, TM clear. Nose: No nasal deformity, mucosal edema or rhinorrhea. Anterior rhinoscopy shows mild rightward septal deviation there is mucoid drainage bilaterally turban hypertrophy there is nasal valve collapse that improves mildly with modified [facility] Mouth: Mucous membranes are not pale, not dry and not cyanotic. No oral lesions. Pharynx: Uvula midline. No oropharyngeal exudate or uvula swelling. Tonsils: No tonsillar exudate. No abnormal masses or lesions Neck: No lymphadenopathy Thyroid: No significant thyromegaly. Trachea: Trachea and phonation normal. No tracheal deviation. Pulmonary: Effort: Pulmonary effort is normal. No respiratory distress. Breath sounds: No stridor. Musculoskeletal: Head: Normocephalic and atraumatic. Neck: Full passive range of motion without pain, neck supple. Skin: General: Skin is warm and dry. Findings: No erythema or rash. Neurological: Cranial Nerves: No cranial nerve deficit. Sensory: No sensory deficit. (more content not included)... [facility] Diagnosis Chronic post-traumatic headache, not intractable- Primary [facility] Diagnosis Chronic migraine without aura with status migrainosus, not intractable- Primary [facility] Diagnosis Chronic migraine without aura with status migrainosus, not intractable- Primary documented in this encounter [facility] Summary Purpose Family History No Family History Records Found Advance Directives No Advanced Directives Records Found Additional Source Comments Reason for Visit (unrecogniz ed section and content) Reason Comments New Patient Headache Daily headaches and sinus congestion that seem to be associated. Previously seen by multiple ENT, sleep studies/sleep apnea test that gave no explanation. Pt suspects burn pit syndrome and chronic rhinitis. Personal efforts to change diet (removing phosphates and chocolate), changing sleep patterns and sleep environment, meditation for stress relief. Headaches are still constant but pain has dulled do to habituation. Reason Comments Follow-up Migraine The patient has not seen any improvement. He states that he has constant sinus pressure, drainage and migraines. He has increased the vitamins and tried the Ubrelvy and this did not help him. Reason Onset Date Comments Advice Only 01/01/2023 NEXUS LETTER INF ORMATION Reason Comments Follow-up Follow up for chroni c migraine. Patient has had a constant migraine on a daily basis. He feels nauseated a few times a week. He has had no relief from medications. Care Teams (unrecognized sec tion and content) Mortgage Processing Clerk Relationship Specialty Start Date End Date Alejandra King MD [address] [place], [place] [id number] P[facility] - [facility] 01/25/22 Mortgage Processing Clerk Relationship Specialty Start Date End Date Alejandra King MD [address] [place] [address] PCP - [facility] 01/25/22 Mortgage Processing Clerk Relationship Specialty Start Date End Date Alejandra King MD [address] [place] [address] [id number] PCP - [facility] 01/25/22 Mortgage Processing Clerk Relationship Specialty Start Date End Date Alejandra King MD PCP - General [facility] Medicine 01/25/22 (unrecognized sect ion and content) No Status Records Found INFORMATION SOURCE (unrecogn ized section and content) FOR RECORDS PERTAINING TO PATIENTS WHO ARE OR HAVE BEEN ENROLLED IN A CHEMICAL DEPENDENCY/SUBSTANCEABUSE PROGRAM, SOME INFORMATION MAY BE OMITTED. This clinical summary was aggregated from multiple sources. Caution should be exercised in using it in the provision of clinical care. This summary normalizes information from multiple sources, and as a consequence, information in this document may materially change the coding, format and clinical context of patient data. In addition, data may be omitted in some cases. CLINICAL DECISIONS SHOULD BE BASED ON THE PRIMARY CLINICAL RECORDS. [facility]. provides no warranty or guarantee of the accuracy or completeness of information in this document.
== END | disposition home or self-care (01) ==
LOC: MFPLAB 15:24
PROVIDERS: PCP Family Medicine; Visit Provider Family Medicine
DX: R41.840 Attention and concentration deficit (principal)
CPT/HCPCS: 36415; 80053; 82306; 83036; 84443; 85025